=== PATIENT | female | born 1965 | race Caucasian/White ===

== ENCOUNTER 2016-12-31 10:30 | Emergency (ER) | payer OTHER ==
--- NOTE | 2016-12-31 10:38 | PDOC ---
History of Present Illness - General Chief Complaint: Eye Problem Stated Complaint: RIGHT EYE PROBLEM Time Seen by Provider: 12/31/16 10:34 History Source: Patient Exam Limitations: No Limitations - History of Present Illness Initial Comments: 12/31/16 10:34 The patient is a 51-year-old female, who presents to the emergency department with right eye pain, after she "banged it on a basket last night." She states that she "feels that she may have scratched the cornea." She has a gnawing/ itching pain in the right eye, which is worsened by blinking. She removed the contact lense that was in when she sustained the injury. She reports very poor vision at baseline without corrective lenses but denies any worsening since the injury. Past History - Past Medical History Allergies/Adverse Reactions: Allergies Allergy/AdvReac Type Severity Reaction Status Date / Time No Known Allergies Allergy Verified 12/31/16 10:32 Home Medications: Ambulatory Orders Thyroid,Pork [[place] Thyroid] 90 mg PO DAILY 12/31/16 GI Disorders: Yes Thyroid Disease: Yes (HYPO) - Psycho/Social/Smoking Cessation Hx Anxiety: No Suicidal Ideation: No Smoking Status: No Smoking History: Never smoked Number of Cigarettes Smoked Daily: 0 Hx Alcohol Use: No Drug/Substance Use Hx: No Substance Use Type: None Review of Systems - Review of Systems Comments:: 12/31/16 10:35 CONSTITUTIONAL: Absent: fever, chills, fatigue EYES: Absent: visual changes ENT: Absent: ear pain, sore throat CARDIOVASCULAR: Absent: chest pain, palpitations, loss of consciousness RESPIRATORY: Absent: cough, SOB SKIN: Absent: rash NEURO: Absent: headache, dizziness *Physical Exam - Physical Exam Comments: 12/31/16 10:35 GENERAL: Well-appearing, well-nourished. No apparent distress. HEENT: Normocephalic, atraumatic. PERRL, EOM intact. There is a 2 mm, linear, corneal abrasion seen in the right eye, which traverses the right side of the iris and some of the pupil. It travels from approximately 10:00a towards 4:00p. No foreign body seen. Anterior chamber clear. CARDIOVASCULAR: Normal S1, S2. Regular rate and rhythm. EXTREMITIES: Normal ROM in all four extremities. No gross deformities. SKIN: Warm, dry. No rash NEUROLOGICAL: No focal neurological deficits. Medical Decision Making - Medical Decision Making 12/31/16 10:36 The patient is well-appearing and in no acute distress She has evidence of a corneal abrasion She understands the absolute importance of not wearing her corrective contact lenses until seen by her chaplain Clinical impression: Corneal abrasion I discussed the physical exam findings and final diagnoses with the patient. I answered all of the patient's questions. The patient was satisfied with the care received and felt comfortable with the discharge plan and treatment plan. The patient will call their primary care physician within 24 hours to arrange follow-up and will return to the Emergency Department with any new, persistent or worsening symptoms. *DC/Admit/Observation/Transfer Diagnosis at time of Disposition: Corneal abrasion - Discharge Dispostion Disposition: HOME Condition at time of disposition: Stable - Patient Instructions Printed Discharge Instructions: DI for Corneal Abrasion Additional Instructions: Return to the emergency department immediately with ANY new, persistent or worsening symptoms. You MUST call and follow up with your doctor tomorrow. Please make sure your doctor reviews the results of your emergency department evaluation. Do not wear your corrective contact lenses until seen by your chaplain. - Post Discharge Activity Work/School Note: Back to Work
[2016-12-31 10:56] VITALS: BP 140/73; PULSE 73; TEMP 98.7; BMI 31.6
== END 2016-12-31 10:56 | disposition home or self-care (01) ==
LOC: FER 10:30
DX: S05.01XA Injury of conjunctiva and corneal abrasion without foreign body, right eye, initial encounter (principal); W22.09XA Striking against other stationary object, initial encounter; Y93.89 Activity, other specified; Y92.9 Unspecified place or not applicable; E03.9 Hypothyroidism, unspecified
CPT/HCPCS: 99282-25

== ENCOUNTER 2018-09-26 05:34 | Emergency (ER) | payer OTHER ==
--- NOTE | 2018-09-26 05:42 | PDOC ---
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 Patient reports experiencing sudden left eye pain as well as associated tearing that she states has gradually increased in intensity over time, prompting her to come into the ED for further evaluation. Denies chest pain, sob. Denies nausea, vomiting. Denies fevers, chills. Denies contact with sick individuals, out of state travelling. Denies any other symptoms. Allergies: None Social history: No smoking. No alcohol. No illicit drugs. Surgical history: None PMD: Dr. Macias - Physicial Exam PE: 09/26/18 06:17 Agree with residents Physical Exam. <Delroy Cross - Last Filed: 09/26/18 06:17> - Resident Resident Name: Dov Ritter - ED Attending Attestation I have performed the following: I have examined & evaluated the patient, The case was reviewed & discussed with the resident, I agree w/resident's findings & plan - Medical Decision Making 09/26/18 06:18 53-year-old female with pain and tearing to the left eye with a history of contact use Fluorescein exam reveals small abrasion/ulcerations Visual acuity at baseline Patient will be discharged on fluoroquinolone drops with ophthalmology follow-up <Naida Rodriguez - Last Filed: 09/26/18 06:19>
[2018-09-26] MEDS ORDERED: TETRACAINE 0.5% OPHTH SOLN 2 ML BOTTLE ONE (05:48)
[2018-09-26] MEDS ORDERED: FLUORESCEIN NA 1 EA STRIP ONE (05:48)
[2018-09-26 05:51] VITALS: BP 139/79; PULSE 68; TEMP 98.2; BMI 31.6
--- NOTE | 2018-09-26 05:59 | PDOC ---
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 Denies fevers, chills, nausea, vomiting. Endorses increased tearing, denies trauma. Denies sick contacts. Has optho in [place] already established. Past History - Past Medical History Allergies/Adverse Reactions: Allergies Allergy/AdvReac Type Severity Reaction Status Date / Time No Known Allergies Allergy Verified 09/26/18 05:50 Home Medications: Ambulatory Orders Thyroid,Pork [[place] Thyroid] 90 mg PO DAILY 12/31/16 Cholecalciferol (Vitamin D3) [Vitamin D3] 2,000 unit PO DAILY 05/09/17 Cyanocobalamin [Vitamin B12 -] 2,000 mcg PO DAILY 05/09/17 Cyclosporine [Restasis] 1 each OP DAILY 05/09/17 [place]-3 Fatty Acids/Fish Oil [Fish Oil [place] Softgel] 1 each PO DAILY 05/09/17 Levofloxacin 2 drop OP Q2H #1 bottle 09/26/18 GI Disorders: Yes Thyroid Disease: Yes (HYPO) - Suicide/Smoking/Psychosocial Hx Smoking Status: No Smoking History: Never smoked Have you smoked in the past 12 months: No Number of Cigarettes Smoked Daily: 0 Information on smoking cessation initiated: No Hx Alcohol Use: No Drug/Substance Use Hx: No Substance Use Type: None Review of Systems - Review of Systems Able to Perform ROS?: Yes Comments:: 09/26/18 06:06 GENERAL/CONSTITUTIONAL: No fever or chills. No weakness. HEAD, EYES, EARS, NOSE AND THROAT: +eye pain. No ear pain or discharge. No sore throat. CARDIOVASCULAR: No chest pain or shortness of breath GASTROINTESTINAL: No nausea, vomiting, diarrhea or constipation. GENITOURINARY: No dysuria, frequency, or change in urination. MUSCULOSKELETAL: No joint or muscle swelling or pain. No neck or back pain. SKIN: No rash NEUROLOGIC: No headache, vertigo, loss of consciousness, or change in strength/ sensation. *Physical Exam - Vital Signs Last Vital Signs Temp Pulse Resp BP Pulse Ox 98.2 F 68 16 139/79 100 09/26/18 05:34 09/26/18 05:34 09/26/18 05:34 09/26/18 05:34 09/26/18 05:34 - Physical Exam Comments: 09/26/18 06:07 GENERAL: Awake, alert, and fully oriented, in no acute distress HEAD: No signs of trauma, normocephalic, atraumatic EYES: PERRLA, EOMI, sclera anicteric, conjunctiva clear, 20/70 vision bilaterally, linear uptake on fluorescin staining, no foreign object found ENT: Auricles normal inspection, hearing grossly normal, nares patent, oropharynx clear without exudates. Moist mucosa NECK: Normal ROM, supple, no lymphadenopathy, JVD, or masses LUNGS: No distress, speaks full sentences, clear to auscultation bilaterally HEART: Regular rate and rhythm, normal S1 and S2, no murmurs, rubs or gallops, peripheral pulses normal and equal bilaterally. NEUROLOGICAL: Cranial nerves II through XII grossly intact. Normal speech, normal gait, no focal sensorimotor deficits SKIN: Warm, Dry, normal turgor, no rashes or lesions noted. Medical Decision Making - Medical Decision Making 09/26/18 06:08 Patient is 53F here today with corneal abrasion vs ulcer. Contact lens user. Vision at baseline. Do not suspect endophthalmitis, gluac[place] or other serious eye pathology at this time. Patient instructed to follow up with optho today. *DC/Admit/Observation/Transfer Diagnosis at time of Disposition: Corneal abrasion - Discharge Dispostion Disposition: HOME Condition at time of disposition: Fair Decision to Admit order: No - Prescriptions Prescriptions: Levofloxacin 2 drop OP Q2H #1 bottle - Referrals Referrals: Clark Macias MD [Primary Care Provider] - Jamshid Diamond MD [Staff Physician] - - Patient Instructions Printed Discharge Instructions: DI for Corneal Abrasion Additional Instructions: Please call your supervisor [facility] today for further evaluation. Please return to the ED if you have any changes in vision, spreading redness, or decreased vision. - Post Discharge Activity
[2018-09-26] MEDS ORDERED: TETRACAINE 0.5% HCL 0.6ML DROPPER.BOTTLE OS ONE (06:13)
[2018-09-26] MEDS ORDERED: FLUORESCEIN NA 1 EA STRIP OS ONE (06:14)
== END 2018-09-26 06:28 | disposition home or self-care (01) ==
LOC: JER 05:34
DX: S05.02XA Injury of conjunctiva and corneal abrasion without foreign body, left eye, initial encounter (principal); X58.XXXA Exposure to other specified factors, initial encounter; Y93.9 Activity, unspecified; Y92.9 Unspecified place or not applicable; E03.9 Hypothyroidism, unspecified
CPT/HCPCS: 99281-25

== ENCOUNTER 2025-01-07 06:56 | Day surgery (SDC) | payer OTHER ==
[2024-12-31 15:02] VITALS: BMI 30.4
[2025-01-07] MEDS ORDERED: ONDANSETRON 4 MG/2 ML VIAL IVPUSH PRN ×2 (10:03→11:48)
[2025-01-07] MEDS ORDERED: PROPOFOL 20 ML ONE (10:23)
[2025-01-07] MEDS ORDERED: DEXAMETHASONE SOD PHOSPHATE 4 MG/1 ML VIAL ONE (10:23)
[2025-01-07] MEDS ORDERED: MIDAZOLAM HCL 2 MG/2 ML SINGLE DOSE VIAL ONE (10:23)
[2025-01-07] MEDS ORDERED: ONDANSETRON 4 MG/2 ML VIAL ONE (10:23)
[2025-01-07] MEDS ORDERED: SEVOFLURANE 250 ML BTL ONE (11:12)
[2025-01-07] MEDS ORDERED: KETOROLAC TROMETHAMINE 30 MG/1 ML VIAL ONE (11:32)
[2025-01-07] MEDS ORDERED: IBUPROFEN 600 MG TABLET (FP) PO PRN (11:48)
[2025-01-07] MEDS ORDERED: IBUPROFEN 800 MG/8 ML IJ IVPB PRN (11:54)
[2025-01-07] MEDS ORDERED: ELECTROLYTE-148 SOLN 1,000 ML IV SCH (12:00)
[2025-01-07] MEDS: LACTATED RINGERS SOLUTION 1,000 ML IV SCH (12:14)
[2025-01-07 13:30] VITALS: RESP 18
[2025-01-07] MEDS ORDERED: ACETAMINOPHEN INJECTION 100 ML ONE (13:45)
[2025-01-07] MEDS: ACETAMINOPHEN 1000 MG/100 ML BAG IVPB PRN (13:50)
[2025-01-07 17:04] VITALS: BP 126/79; PULSE 64; TEMP 97.5
== END 2025-01-07 16:45 | disposition home or self-care (01) ==
LOC: JASU-SURG 06:56
PROVIDERS: ATTEND Obstetrics & Gynecology
PROC: 0UB98ZZ Excision of Uterus, Via Natural or Artificial Opening Endoscopic (ICD-10-PCS; 2025-01-07)
PROC: 0UBC8ZZ Excision of Cervix, Via Natural or Artificial Opening Endoscopic (ICD-10-PCS; principal; 2025-01-07 10:00)
DX: N84.0 Polyp of corpus uteri (principal); N84.1 Polyp of cervix uteri
CPT/HCPCS: 88305-TC; 94760